=== PATIENT | female | born 1985 | race African-American/Black ===

== ENCOUNTER 2018-07-25 19:10 | Observation (INO) | payer OTHER ==
[~2018-07-25] VITALS: Ht 172.7 cm; Wt 66.7 kg
[2018-07-25 19:30] VITALS: BP 113/73
[2018-07-25] MEDS ORDERED: Isovue-300 100ml vial INJ PRN (20:30)
[2018-07-25] MEDS ORDERED: Morphine Sulfate 4mg/ml Inj (IV/IM USE ONLY) IVP ONE ×2 (20:30→23:30)
[2018-07-25 21:20] LABS: HEMATOCRIT 45.1 % (37.0-47.0); HEMOGLOBIN 13.8 G/DL (12.0-16.0); MEAN CORPUSCULAR VOLUME 70 FL (80-99); PLATELET COUNT 265 K/UL (150-450); RED CELL DISTRIBUTION WIDTH 13.8 % (11.6-14.8); WHITE BLOOD COUNT 8.9 K/UL (4.8-10.8)
[2018-07-25 21:25] LABS: APPEARANCE,URINE SLIGHTLY CLOUDY; BILIRUBIN, URINE NEGATIVE (NEGATIVE); GLUCOSE, URINE (UA) NEGATIVE (NEGATIVE); KETONES,URINE 1+ (NEGATIVE); LEUKOCYTE ESTERASE ,URINE 2+ (NEGATIVE); NITRITE,URINE POSITIVE (NEGATIVE); PH,URINE 6 (4.5-8.0); PROTEIN,URINE 2+ (NEGATIVE); UROBILINOGEN,URINE 1 MG/DL (0.0-1.0)
[2018-07-25 21:27] LABS: ANION GAP 9 mmol/L (5-15); BLOOD UREA NITROGEN 23 mg/dL (7-18); CARBON DIOXIDE 27 MMOL/L (21-32); CHLORIDE 102 MMOL/L (98-107); CREATININE 1.1 MG/DL (0.55-1.30); POTASSIUM 3.5 MMOL/L (3.5-5.1); SODIUM 138 MMOL/L (136-145)
[2018-07-25 21:28] LABS: ALANINE AMINOTRANSFERASE 20 U/L (12-78); ALBUMIN 4.1 G/DL (3.4-5.0); ALBUMIN/GLOBULIN RATIO 0.9 (1.0-2.7); ALKALINE PHOSPHATASE 81 U/L (46-116); ASPARTATE AMINO TRANSFERASE 17 U/L (15-37); BILIRUBIN,TOTAL 0.6 MG/DL (0.2-1.0)
[2018-07-25 21:30] LABS: COLOR,URINE YELLOW
[2018-07-25] MEDS ORDERED: Omnipaque-300 100ml vial INJ ONE (21:47)
[2018-07-25] MEDS ORDERED: cefTRIAXone 1 GM in NS 55 ML IVPB ONE (22:45)
--- NOTE | 2018-07-25 23:10 | Emergency Room Report ---
History of Present Illness General Chief Complaint: General Complaint Source: Patient (Dylan Csatro MD) Present Illness HPI 32-year-old female presents ED for evaluation. Patient referred by PMD for her lower abdominal pain. 8 out of 10, sharp, localized to right lower quadrant. Patient was seen at [facility] yesterday for same pain. Had ultrasound which showed ovarian cyst. Was subsequently discharged. States that pain persisted. Was seen by PMD today and was referred here to rule out appendicitis. Had low -grade fever. Denies nausea or vomiting. Denies chest pain or shortness of breath. No other aggravating relieving factors (Dylan Castor MD) Allergies: Coded Allergies: CLINDAMYCIN (Verified Allergy, Unknown, 07/25/18) Patient History Past Medical History: none Past Surgical History: none Pertinent Family History: none Social History: Denies: smoking, alcohol use, drug use Last Menstrual Period: 07/24/18 Now: No : 1 Para: 1 Immunizations: UTD Reviewed Nursing Documentation: PMH: Agreed; PSxH: Agreed (Dylan Castro MD) Nursing Documentation-PMH Past Medical History: No Stated History (Dylan Castro MD) Review of Systems All Other Systems: negative except mentioned in HPI (Dylan Castro MD) Physical Exam Vital Signs Date Time Temp Pulse Resp B/P (MAP) Pulse Ox O2 Delivery O2 Flow Rate FiO2 07/25/18 19:25 98.1 97 15 119/76 100 Room Air Sp02 EP Interpretation: reviewed, normal General Appearance: no apparent distress, alert, GCS 15, non-toxic Head: normocephalic, atraumatic Eyes: bilateral eye normal inspection, bilateral eye PERRL ENT: hearing grossly normal, normal pharynx, no angioedema, normal voice Neck: full range of motion, supple/symm/no masses Respiratory: chest non-tender, lungs clear, normal breath sounds, speaking full sentences Cardiovascular #1: regular rate, rhythm, no edema Cardiovascular #2: 2+ carotid (R), 2+ carotid (L), 2+ radial (R), 2+ radial (L) , 2+ dorsalis pedis (R), 2+ dorsalis pedis (L) Gastrointestinal: guarding, tenderness - RLQ Rectal: deferred Genitourinary: normal inspection, no CVA tenderness Musculoskeletal: back normal, gait/station normal, normal range of motion, non- tender Neurologic: alert, oriented x3, responsive, motor strength/tone normal, sensory intact, speech normal Psychiatric: judgement/insight normal, memory normal, mood/affect normal, no suicidal/homicidal ideation Reflexes: 3+ bicep (R), 3+ bicep (L), 3+ tricep (R), 3+ tricep (L), 3+ knee (R) , 3+ knee (L) Skin: normal color, no rash, warm/dry, well hydrated Lymphatic: no adenopathy (Dylan Castro MD) Medical Decision Making Diagnostic Impression: Primary Impression: UTI (urinary tract infection) Additional Impression: Ovarian cyst Labs Test 07/25/18 20:40 White Blood Count 8.9 K/UL (4.8-10.8) Red Blood Count 6.40 M/UL (4.20-5.40) Hemoglobin 13.8 G/DL (12.0-16.0) Hematocrit 45.1 % (37.0-47.0) Mean Corpuscular Volume 70 FL (80-99) Mean Corpuscular Hemoglobin 21.6 PG (27.0-31.0) Mean Corpuscular Hemoglobin Concent 30.7 G/DL (32.0-36.0) Red Cell Distribution Width 13.8 % (11.6-14.8) Platelet Count 265 K/UL (150-450) Mean Platelet Volume 6.2 FL (6.5-10.1) Neutrophils (%) (Auto) % (45.0-75.0) Lymphocytes (%) (Auto) % (20.0-45.0) Monocytes (%) (Auto) % (1.0-10.0) Eosinophils (%) (Auto) % (0.0-3.0) Basophils (%) (Auto) % (0.0-2.0) Differential Total Cells Counted 100 Neutrophils % (Manual) 78 % (45-75) Lymphocytes % (Manual) 14 % (20-45) Monocytes % (Manual) 5 % (1-10) Eosinophils % (Manual) 2 % (0-3) Basophils % (Manual) 1 % (0-2) Band Neutrophils 0 % (0-8) Platelet Estimate Adequate Platelet Morphology Normal Red Blood Cell Morphology Normal Urine Color Yellow Urine Appearance Slightly cloudy Urine pH 6 (4.5-8.0) Urine Specific [place] 1.015 (1.005-1.035) Urine Protein 2+ (NEGATIVE) Urine Glucose (UA) Negative (NEGATIVE) Urine Ketones 1+ (NEGATIVE) Urine Blood 4+ (NEGATIVE) Urine Nitrite Positive (NEGATIVE) Urine Bilirubin Negative (NEGATIVE) Urine Urobilinogen 1 MG/DL (0.0-1.0) Urine Leukocyte Esterase 2+ (NEGATIVE) Urine RBC 10-15 /HPF (0 - 2) Urine WBC 5-10 /HPF (0 - 2) Urine Squamous Epithelial Cells Few /LPF (NONE/OCC) Urine Bacteria Moderate /HPF (NONE) Urine HCG, Qualitative Negative (NEGATIVE) Sodium Level 138 MMOL/L (136-145) Potassium Level 3.5 MMOL/L (3.5-5.1) Chloride Level 102 MMOL/L (98-107) Carbon Dioxide Level 27 MMOL/L (21-32) Anion Gap 9 mmol/L (5-15) Blood Urea Nitrogen 23 mg/dL (7-18) Creatinine 1.1 MG/DL (0.55-1.30) Estimat Glomerular Filtration Rate > 60 mL/min (>60) Glucose Level 141 MG/DL (74-106) Calcium Level 9.0 MG/DL (8.5-10.1) Total Bilirubin 0.6 MG/DL (0.2-1.0) Aspartate Amino Transf (AST/SGOT) 17 U/L (15-37) Alanine Aminotransferase (ALT/SGPT) 20 U/L (12-78) Alkaline Phosphatase 81 U/L (46-116) Total Protein 8.6 G/DL (6.4-8.2) Albumin 4.1 G/DL (3.4-5.0) Globulin 4.5 g/dL Albumin/Globulin Ratio 0.9 (1.0-2.7) Lipase 171 U/L (73-393) Human Chorionic Gonadotropin, Quant 1 mIU/mL (1-6) (Dylan Castro MD) ER Course Patient was seen by Dr. Allen. Signout to me for final disposition. Patient has [facility] and approved to be admitted here. Because of her continual pain and low-grade fever at home, patient was placed in observation. Antibiotics given here for UTI. I discussed the case with Dr. Fragoso for observation. (Tahir Mendoza MD) CT/MRI/US Diagnostic Results CT/MRI/US Diagnostic Results : Imaging Test Ordered: CT A/P Impression no appendicitis. ovarian cysts. (Dylan Castro MD) Last Vital Signs Date Time Temp Pulse Resp B/P (MAP) Pulse Ox O2 Delivery O2 Flow Rate FiO2 07/25/18 21:38 98.1 07/25/18 19:30 94 16 Room Air 07/25/18 19:30 113/73 100 (Dylan Castro MD) Scripts No Active Prescriptions or Reported Meds Referrals: [facility],REFERRING (PCP) Dylan Castro MD Jul 25, 2018 23:10 Tahir Mendoza MD Jul 26, 2018 00:14
[2018-07-25] MEDS ORDERED: Ketorolac 30mg Inj IV ONE (23:30)
[2018-07-26 01:04] VITALS: BP 98/57
[2018-07-26] MEDS ORDERED: Morphine Sulfate 2mg/ml Inj IVP PRN (01:15)
[2018-07-26] MEDS: NS w/KCl 20mEq 1,000 ML IV SCH ×3 (01:56→17:23)
[2018-07-26 05:50] VITALS: BP 98/51
[2018-07-26 08:00] VITALS: BP 91/57
[2018-07-26 08:10] LABS: BASOPHILS % (AUTO) 0.5 % (0.0-2.0); EOSINOPHILS % (AUTO) 1.2 % (0.0-3.0); HEMATOCRIT 33.2 % (37.0-47.0); HEMOGLOBIN 10.3 G/DL (12.0-16.0); LYMPHOCYTES % (AUTO) 21.6 % (20.0-45.0); MEAN CORPUSCULAR VOLUME 70 FL (80-99); MONOCYTES % (AUTO) 9.9 % (1.0-10.0); NEUTROPHILS % (AUTO) 66.9 % (45.0-75.0); PLATELET COUNT 223 K/UL (150-450); RED BLOOD COUNT 4.73 M/UL (4.20-5.40); RED CELL DISTRIBUTION WIDTH 13.4 % (11.6-14.8); WHITE BLOOD COUNT 5.9 K/UL (4.8-10.8)
[2018-07-26 08:36] LABS: ALANINE AMINOTRANSFERASE 16 U/L (12-78); ALBUMIN 2.9 G/DL (3.4-5.0); ALBUMIN/GLOBULIN RATIO 0.8 (1.0-2.7); ALKALINE PHOSPHATASE 57 U/L (46-116); ANION GAP 8 mmol/L (5-15); ASPARTATE AMINO TRANSFERASE 13 U/L (15-37); BILIRUBIN,TOTAL 0.3 MG/DL (0.2-1.0); BLOOD UREA NITROGEN 17 mg/dL (7-18); CALCIUM 7.9 MG/DL (8.5-10.1); CARBON DIOXIDE 25 MMOL/L (21-32); CHLORIDE 107 MMOL/L (98-107); POTASSIUM 3.8 MMOL/L (3.5-5.1); SODIUM 140 MMOL/L (136-145)
[2018-07-26] MEDS: Ketorolac 30mg Inj IV PRN ×2 (08:48→16:26)
[2018-07-26 12:00] VITALS: BP 90/58
--- NOTE | 2018-07-26 13:00 | Consultation ---
History of Present Illness General Date patient seen: Jul 26, 2018 Chief Complaint: General Complaint Reason for Consultation: abdominal pain Present Illness HPI 32 year old otherwise healthy female presented to ED with complaints of RLQ abdominal pain. States pain began 1-2 days ago and was sharp 8/10 RLQ pain. Went to [facility] for evaluation and pelvic ultrasound performed demonstrating ovarian cyst. was discharged and went to PCP who identified significant RLQ tenderness and requested her to be evaluated at another facility. Surgery called to evaluate. CT performed. Patient seen, chart reviewed, patient examined. States she is doing better since admission. currently no n/v/f/c. normal BM's Allergies: Coded Allergies: CLINDAMYCIN (Verified Allergy, Unknown, 07/25/18) Medication History No Active Prescriptions or Reported Meds Patient History History Provided By: Patient, Medical Record, PMD Healthcare decision maker Resuscitation status Full Code Advanced Directive on File No Past Medical/Surgical History Past Medical/Surgical History: (1) Abdominal pain (2) Ovarian cyst (3) UTI (urinary tract infection) Review of Systems All Other Systems: negative except mentioned in HPI Physical Exam General Appearance: WD/WN, no apparent distress, alert Lines, tubes and drains: peripheral HEENT: normocephalic, atraumatic, anicteric, mucous membranes moist, PERRL Neck: non-tender, normal alignment, supple, normal inspection Respiratory/Chest: lungs clear, normal breath sounds, no respiratory distress, no accessory muscle use Cardiovascular/Chest: normal peripheral pulses, normal rate, regular rhythm Abdomen: normal bowel sounds, soft, no organomegaly, no mass, tender - RLQ tender with rebound Extremities: normal inspection Skin Exam: warm/dry Neurologic: alert, oriented x 3 Last 24 Hour Vital Signs Date Time Temp Pulse Resp B/P (MAP) Pulse Ox O2 Delivery O2 Flow Rate FiO2 07/26/18 09:00 Room Air 07/26/18 08:00 99.0 76 18 91/57 (68) 98 07/26/18 08:00 99.0 76 18 91/57 (68) 98 07/26/18 05:50 98.6 76 18 98/51 (67) 100 07/26/18 01:14 Room Air 07/26/18 01:10 98.1 91 17 112/71 100 Room Air 07/26/18 01:04 98.7 79 18 98/57 (71) 96 07/25/18 21:38 98.1 07/25/18 19:30 94 16 Room Air 07/25/18 19:30 98.1 87 16 113/73 100 Room Air 07/25/18 19:25 98.1 97 15 119/76 100 Room Air Intake and Output 07/25/18 07/26/18 19:00 07:00 Intake Total 2075 ml Output Total 200 ml Balance 1875 ml Intake Oral 450 ml IV Total 1625 ml Output Urine Total 200 ml # Voids 1 Laboratory Tests Test 07/25/18 20:40 07/26/18 07:10 White Blood Count 8.9 K/UL (4.8-10.8) 5.9 K/UL (4.8-10.8) Red Blood Count 6.40 M/UL (4.20-5.40) H 4.73 M/UL (4.20-5.40) Hemoglobin 13.8 G/DL (12.0-16.0) 10.3 G/DL (12.0-16.0) L Hematocrit 45.1 % (37.0-47.0) 33.2 % (37.0-47.0) L Mean Corpuscular Volume 70 FL (80-99) L 70 FL (80-99) L Mean Corpuscular Hemoglobin 21.6 PG (27.0-31.0) L 21.8 PG (27.0-31.0) L Mean Corpuscular Hemoglobin Concent 30.7 G/DL (32.0-36.0) L 31.1 G/DL (32.0-36.0) L Red Cell Distribution Width 13.8 % (11.6-14.8) 13.4 % (11.6-14.8) Platelet Count 265 K/UL (150-450) 223 K/UL (150-450) Mean Platelet Volume 6.2 FL (6.5-10.1) L 6.9 FL (6.5-10.1) Neutrophils (%) (Auto) % (45.0-75.0) 66.9 % (45.0-75.0) Lymphocytes (%) (Auto) % (20.0-45.0) 21.6 % (20.0-45.0) Monocytes (%) (Auto) % (1.0-10.0) 9.9 % (1.0-10.0) Eosinophils (%) (Auto) % (0.0-3.0) 1.2 % (0.0-3.0) Basophils (%) (Auto) % (0.0-2.0) 0.5 % (0.0-2.0) Differential Total Cells Counted 100 Neutrophils % (Manual) 78 % (45-75) H Lymphocytes % (Manual) 14 % (20-45) L Monocytes % (Manual) 5 % (1-10) Eosinophils % (Manual) 2 % (0-3) Basophils % (Manual) 1 % (0-2) Band Neutrophils 0 % (0-8) Platelet Estimate Adequate Platelet Morphology Normal Red Blood Cell Morphology Normal Urine Color Yellow Urine Appearance Slightly cloudy Urine pH 6 (4.5-8.0) Urine Specific [place] 1.015 (1.005-1.035) Urine Protein 2+ (NEGATIVE) H Urine Glucose (UA) Negative (NEGATIVE) Urine Ketones 1+ (NEGATIVE) H Urine Blood 4+ (NEGATIVE) H Urine Nitrite Positive (NEGATIVE) H Urine Bilirubin Negative (NEGATIVE) Urine Urobilinogen 1 MG/DL (0.0-1.0) H Urine Leukocyte Esterase 2+ (NEGATIVE) H Urine RBC 10-15 /HPF (0 - 2) H Urine WBC 5-10 /HPF (0 - 2) H Urine Squamous Epithelial Cells Few /LPF (NONE/OCC) Urine Bacteria Moderate /HPF (NONE) H Urine HCG, Qualitative Negative (NEGATIVE) Sodium Level 138 MMOL/L (136-145) 140 MMOL/L (136-145) Potassium Level 3.5 MMOL/L (3.5-5.1) 3.8 MMOL/L (3.5-5.1) Chloride Level 102 MMOL/L (98-107) 107 MMOL/L (98-107) Carbon Dioxide Level 27 MMOL/L (21-32) 25 MMOL/L (21-32) Anion Gap 9 mmol/L (5-15) 8 mmol/L (5-15) Blood Urea Nitrogen 23 mg/dL (7-18) H 17 mg/dL (7-18) Creatinine 1.1 MG/DL (0.55-1.30) 1.0 MG/DL (0.55-1.30) Estimat Glomerular Filtration Rate > 60 mL/min (>60) > 60 mL/min (>60) Glucose Level 141 MG/DL (74-106) H 76 MG/DL (74-106) Calcium Level 9.0 MG/DL (8.5-10.1) 7.9 MG/DL (8.5-10.1) L Total Bilirubin 0.6 MG/DL (0.2-1.0) 0.3 MG/DL (0.2-1.0) Aspartate Amino Transf (AST/SGOT) 17 U/L (15-37) 13 U/L (15-37) L Alanine Aminotransferase (ALT/SGPT) 20 U/L (12-78) 16 U/L (12-78) Alkaline Phosphatase 81 U/L (46-116) 57 U/L (46-116) Total Protein 8.6 G/DL (6.4-8.2) H 6.4 G/DL (6.4-8.2) Albumin 4.1 G/DL (3.4-5.0) 2.9 G/DL (3.4-5.0) L Globulin 4.5 g/dL 3.5 g/dL Albumin/Globulin Ratio 0.9 (1.0-2.7) L 0.8 (1.0-2.7) L Lipase 171 U/L (73-393) Human Chorionic Gonadotropin, Quant 1 mIU/mL (1-6) Thyroid Stimulating Hormone (TSH) 2.007 uiU/mL (0.358-3.740) Height (Feet): 5 Height (Inches): 8.00 Weight (Pounds): 150 Medications Current Medications Medications (Trade) Dose Ordered Sig/Jaiden Route PRN Reason Start Time Stop Time Status Last Admin Dose Admin Barium Sulfate (Readi-Cat 2) 450 ml NOW PRN ORAL Radiology Procedure 07/25/18 20:30 07/27/18 20:16 Ceftriaxone Sodium 1 gm/ Dextrose 55 ml @ 110 mls/hr Q24H IVPB 07/26/18 23:00 08/02/18 22:59 Heparin Sodium (Porcine) (Heparin 5000 units/ml) 5,000 units EVERY 12 HOURS SUBQ 07/26/18 21:00 08/25/18 20:59 Iopamidol (Isovue-300 100ml) 100 ml NOW PRN INJ Radiology Procedure 07/25/18 20:30 Ketorolac Tromethamine (Toradol 30mg) 30 mg Q6H PRN IV abd pain 07/26/18 02:30 07/31/18 02:29 07/26/18 08:48 Morphine Sulfate (Morphine Sulfate) 2 mg Q4H PRN IVP For Pain 07/26/18 01:15 08/02/18 01:14 07/26/18 02:26 Ondansetron HCl (Zofran) 4 mg Q6H PRN IVP Nausea & Vomiting 07/26/18 01:15 08/25/18 01:14 Sodium Chloride 1,000 ml @ 125 mls/hr Q8H IV 07/26/18 01:15 08/25/18 01:14 07/26/18 09:18 Assessment/Plan Problem List: (1) Abdominal pain Assessment & Plan: RLQ abdominal pain labs normal exam with RLQ tenderness/rebound CT with normal appendix UTI ovarian cyst likely ovarian cyst discomfort seems to be improving unlikely appendicitis start liquid diet will follow with serial exams thank you ICD Codes: R10.9 - Unspecified abdominal pain SNOMED: [id number] Qualifiers: Qualified Codes: R10.31 - Right lower quadrant pain Status: stable Jonny Rizzo Jul 26, 2018 13:00
--- NOTE | 2018-07-26 15:21 | Diagnostic Imaging Report ---
Clinical Indication: Abdominal pain Technique: Patient given oral contrast. IV administration nonionic contrast. Venous phase spiral acquisition obtained through the abdomen and pelvis. Multiplanar reconstructions were generated. Total dose length product 492.49 mGycm. CTDIvol(s) 9.74 mGy. Dose reduction achieved using automated exposure control Comparison: none Findings: Appendix is normal. There is no evidence of diverticulosis or diverticulitis. Distal esophagus, stomach, duodenum are unremarkable, except that the stomach is fluid filled. Ingested oral contrast is seen as far distally as the distal ileum no small bowel distention or small bowel wall thickening. There is trace free cul-de-sac fluid. No free intraperitoneal gas. The liver, gallbladder, bile ducts, pancreas, spleen, adrenals are unremarkable. The kidneys demonstrate bilateral subcentimeter low-attenuation lesions which are too small to characterize. No renal or ureteral calculi, hydronephrosis, or hydroureter. There is a 3 cm left ovarian cyst. The uterus is unremarkable. The included lung bases are clear. The bones are unremarkable. Impression: No acute abnormality 3 cm left ovarian cyst is almost certainly benign. No further follow-up necessary Trace free cul-de-sac fluid, presumably physiologic Subcentimeter low-attenuation renal lesions, too small to characterize, most likely benign simple cortical cysts. No further follow-up necessary This agrees with the preliminary interpretation provided overnight by Dr. King The CT scanner at [facility] is accredited by the [employer] and the scans are performed using protocols designed to limit radiation exposure to as low as reasonably achievable to attain images of sufficient resolution adequate for diagnostic evaluation.
[2018-07-26 16:00] VITALS: BP 100/78
[2018-07-26 20:00] VITALS: BP 112/71
[2018-07-26] MEDS: Heparin 5000 units/ml inj SUBQ SCH (21:01)
[2018-07-26] MEDS ORDERED: cefTRIAXone 1 GM in D5W 55 ML IVPB SCH (23:00)
[2018-07-27] VITALS: BP 118/67
--- NOTE | 2018-07-27 00:30 | History and Physical Report ---
DATE OF ADMISSION: 07/25/2018 REASON FOR ADMISSION: Abdominal pain. HISTORY OF PRESENT ILLNESS: This is a 32-year-old female with no significant prior medical history. She was seen in the [facility] Emergency Room yesterday with right lower quadrant abdominal pain that was relatively sudden in onset and severe, associated with some nausea, but no vomiting. No fevers and no chills. No known abnormal bowel habits. She apparently had a pelvic ultrasound that revealed an ovarian cyst and was discharged home later last evening. Her symptoms were persisted and even worsened prompting her to come to the emergency room at [facility] for further care. The patient notes that her menstrual period, which was normal ended yesterday and was somewhat shorter than usual, but otherwise not remarkable. PAST MEDICAL HISTORY: Otherwise negative. ALLERGIES: Clindamycin. FAMILY HISTORY: Noncontributory. SOCIAL HISTORY: Negative for smoking, alcohol, or substance abuse. MEDICATIONS: Prior to admission, none. REVIEW OF SYSTEMS: A 10-point review of systems performed. All systems negative other than noted above. PHYSICAL EXAMINATION: VITAL SIGNS: In the emergency room blood pressure 119/76, pulse 97, respirations 15, afebrile; presently 91/57, 76, 18, and temperature 99. HEENT: Conjunctivae are pink. Oropharynx is clear. NECK: Supple. LUNGS: Clear. CARDIAC: Regular. Normal S1, S2 with no murmur. ABDOMEN: Soft. There is mild tenderness in the right lower quadrant with some rebound. EXTREMITIES: No edema. NEUROLOGIC: Nonfocal. LABORATORY DATA: Urinalysis with 5 to 10 white cells. Abdominal pelvic CAT scan notable only for 2 cm left ovarian cyst and trace free cul-de-sac fluid, otherwise unremarkable. White count 8.9, hemoglobin 13.8. Chemistry panel within normal limits other than glucose 141. IMPRESSION: Abdominal pain, possibly due to ruptured ovarian cyst, post menses. No evidence of acute appendicitis or gastrointestinal pathology noted on imaging studies. However, exam is not entirely benign. RECOMMENDATION: 1. Admit for observation. 2. Hydrate. 3. NPO. 4. Surgical evaluation. 5. Pain control. 6. DVT prophylaxis. Gary Fragoso M.D. DR: KENNETH JOB#: [id number] CC:
[2018-07-27] MEDS: Ketorolac 30mg Inj IV PRN (01:08)
[2018-07-27] MEDS ORDERED: NS w/KCl 20mEq 1,000 ML IV SCH (01:15)
[2018-07-27 04:00] VITALS: BP 109/63
[2018-07-27 06:46] LABS: BASOPHILS % (AUTO) 0.4 % (0.0-2.0); EOSINOPHILS % (AUTO) 1.7 % (0.0-3.0); HEMATOCRIT 33.3 % (37.0-47.0); HEMOGLOBIN 10.4 G/DL (12.0-16.0); LYMPHOCYTES % (AUTO) 21.5 % (20.0-45.0); MEAN CORPUSCULAR VOLUME 70 FL (80-99); MONOCYTES % (AUTO) 11.9 % (1.0-10.0); NEUTROPHILS % (AUTO) 64.5 % (45.0-75.0); PLATELET COUNT 215 K/UL (150-450); RED BLOOD COUNT 4.75 M/UL (4.20-5.40); RED CELL DISTRIBUTION WIDTH 13.2 % (11.6-14.8); WHITE BLOOD COUNT 6.8 K/UL (4.8-10.8)
[2018-07-27 07:01] LABS: ALANINE AMINOTRANSFERASE 14 U/L (12-78); ALBUMIN/GLOBULIN RATIO 0.8 (1.0-2.7); ALKALINE PHOSPHATASE 53 U/L (46-116); AMYLASE 152 U/L (25-115); ANION GAP 7 mmol/L (5-15); ASPARTATE AMINO TRANSFERASE 12 U/L (15-37); BILIRUBIN,TOTAL 0.3 MG/DL (0.2-1.0); BLOOD UREA NITROGEN 12 mg/dL (7-18); CALCIUM 8.6 MG/DL (8.5-10.1); CARBON DIOXIDE 27 MMOL/L (21-32); CHLORIDE 106 MMOL/L (98-107); CREATININE 0.9 MG/DL (0.55-1.30); POTASSIUM 4.1 MMOL/L (3.5-5.1); SODIUM 140 MMOL/L (136-145)
[2018-07-27 08:00] VITALS: BP 108/70
[2018-07-27] MEDS: Heparin 5000 units/ml inj SUBQ SCH (08:33)
[2018-07-27 12:00] VITALS: BP 110/64
--- NOTE | 2018-07-27 13:42 | General Surgery Progress Note ---
General Surgery-Progress Note Subjective Symptoms: improved, tolerating diet, passing flatus Additional Comments pain much improved and minimal now Objective Last 24 Hour Vital Signs Date Time Temp Pulse Resp B/P (MAP) Pulse Ox O2 Delivery O2 Flow Rate FiO2 07/27/18 12:00 98.8 69 18 110/64 (79) 100 07/27/18 08:47 Room Air 07/27/18 08:00 97.8 81 18 108/70 (83) 99 07/27/18 04:00 97.7 71 17 109/63 (78) 98 07/27/18 00:00 98.2 79 16 118/67 (84) 97 07/26/18 20:15 Room Air 07/26/18 20:00 98.0 80 17 112/71 (85) 98 07/26/18 16:00 97.4 78 18 100/78 (85) 98 I&O Intake and Output 07/26/18 07/27/18 19:00 07:00 Intake Total 2062.5 ml 1310 ml Balance 2062.5 ml 1310 ml Intake Oral 800 ml 360 ml IV Total 1262.5 ml 950 ml # Voids 4 3 Drains: none Cardiovascular: RSR Respiratory: clear Abdomen: soft, flat, non-tender, present bowel sounds Extremities: no tenderness, no cyanosis Laboratory Tests Test 07/27/18 05:25 White Blood Count 6.8 K/UL (4.8-10.8) Red Blood Count 4.75 M/UL (4.20-5.40) Hemoglobin 10.4 G/DL (12.0-16.0) L Hematocrit 33.3 % (37.0-47.0) L Mean Corpuscular Volume 70 FL (80-99) L Mean Corpuscular Hemoglobin 21.8 PG (27.0-31.0) L Mean Corpuscular Hemoglobin Concent 31.1 G/DL (32.0-36.0) L Red Cell Distribution Width 13.2 % (11.6-14.8) Platelet Count 215 K/UL (150-450) Mean Platelet Volume 6.5 FL (6.5-10.1) Neutrophils (%) (Auto) 64.5 % (45.0-75.0) Lymphocytes (%) (Auto) 21.5 % (20.0-45.0) Monocytes (%) (Auto) 11.9 % (1.0-10.0) H Eosinophils (%) (Auto) 1.7 % (0.0-3.0) Basophils (%) (Auto) 0.4 % (0.0-2.0) Erythrocyte Sedimentation Rate 14 MM/HR (0-20) Sodium Level 140 MMOL/L (136-145) Potassium Level 4.1 MMOL/L (3.5-5.1) Chloride Level 106 MMOL/L (98-107) Carbon Dioxide Level 27 MMOL/L (21-32) Anion Gap 7 mmol/L (5-15) Blood Urea Nitrogen 12 mg/dL (7-18) Creatinine 0.9 MG/DL (0.55-1.30) Estimat Glomerular Filtration Rate > 60 mL/min (>60) Glucose Level 81 MG/DL (74-106) Lactic Acid Level 0.50 mmol/L (0.4-2.0) Calcium Level 8.6 MG/DL (8.5-10.1) Total Bilirubin 0.3 MG/DL (0.2-1.0) Aspartate Amino Transf (AST/SGOT) 12 U/L (15-37) L Alanine Aminotransferase (ALT/SGPT) 14 U/L (12-78) Alkaline Phosphatase 53 U/L (46-116) C-Reactive Protein, Quantitative 4.7 mg/dL (0.00-0.90) H Total Protein 6.6 G/DL (6.4-8.2) Albumin 3.0 G/DL (3.4-5.0) L Globulin 3.6 g/dL Albumin/Globulin Ratio 0.8 (1.0-2.7) L Amylase Level 152 U/L (25-115) H Lipase 113 U/L (73-393) Plan Problems: (1) Abdominal pain Assessment & Plan: RLQ abdominal pain labs normal exam with RLQ tenderness/rebound CT with normal appendix UTI ovarian cyst likely ovarian cyst discomfort seems to be improving unlikely appendicitis diet as tolerated okay to d/c 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
[2018-07-27] MEDS ORDERED: IBUPROFEN600 MG ORAL (13:53)
[2018-07-27] MEDS ORDERED: Tubing IV Secondary IV ONE (14:11)
== END 2018-07-27 14:12 | disposition home or self-care (01) ==
LOC: EMR 20:34 → 3E 23:53 → EDBEDREQ 07-26 00:11
DX: N83.209 Unspecified ovarian cyst, unspecified side (principal); N39.0 Urinary tract infection, site not specified; Z88.1 Allergy status to other antibiotic agents
CPT/HCPCS: 36415; 74177; 80053; 81003; 81025; 82150; 83605; 83690; 84443; 84702; 85007; 85025; 85651; 86140; 87081; 87086; 87181; 96361; 96365; 96375; 96376; 99284; G0378; J0696; J1644; J1885; J2270; J2405; Q9965; Q9967